=== PATIENT | female | born 1970 | race Caucasian/White ===

== ENCOUNTER 2024-12-15 11:53 | Emergency (ER) | payer BC ==
[~2024-12-15] VITALS: Ht 160 cm; Wt 61.0 kg
[2024-12-15 11:58] VITALS: O2SAT 100
[2024-12-15 11:59] VITALS: BP 149/69; PULSE 76; RESP 16; TEMP 36.6; O2SAT 100
[2024-12-15 13:24] LABS: BASOPHILS % 0.7 % (0.0-2.0); EOSINOPHILS % 1.1 % (0.0-5.0); LYMPHOCYTES % 27.4 % (20.0-50.0); MEAN CORPUSCULAR HEMOGLOBIN 30.4 pg (28.0-32.0); MEAN CORPUSCULAR HGB CONC 32.4 g/dL (31.0-37.0); MEAN CORPUSCULAR VOLUME 93.8 fL (81.0-99.0); MEAN PLATELET VOLUME 9.5 fl (7.4-10.4); MONOCYTES % 6.6 % (2.0-8.0); NEUTROPHILS % 64.2 % (40.0-76.0); PLATELET 325 x1000/uL (130-400); RED BLOOD CELL COUNT 4.26 mill/uL (4.2-5.4); RED CELL DISTRIBUTION WIDTH 13.6 % (11.6-14.6); WHITE BLOOD COUNT 7.3 x1000/uL (4.5-11.0)
[2024-12-15 13:52] LABS: CHLORIDE 106 mEq/L (98-107); POTASSIUM 4.1 mEq/L (3.5-5.1); SODIUM 140 mEq/L (136-145)
[2024-12-15 13:53] LABS: CARBON DIOXIDE 27 mEq/L (21-32)
[2024-12-15 13:54] LABS: CALCIUM 9.5 mg/dL (8.7-10.4)
[2024-12-15 13:58] LABS: CREATININE 0.7 mg/dL (0.6-1.0); GLUCOSE 97 mg/dL (70-105)
[2024-12-15 13:59] LABS: UREA NITROGEN BLOOD 7 mg/dL (9-23)
[2024-12-15 14:00] LABS: ALANINE AMINOTRANSFERASE 14 IU/L (10-49); ALBUMIN 4.1 g/dL (3.2-4.8); ASPARTATE AMINOTRANSFERASE 21 IU/L (<34)
[2024-12-15 14:01] LABS: BILIRUBIN TOTAL 0.9 mg/dL (0.1-1.0); PROTEIN TOTAL 6.8 g/dL (6.0-8.3)
[2024-12-15] MEDS: IOHEXOL-300 100 ML BOTTLE ONE (15:15)
[2024-12-15] MEDS: LIDOCAINE HCL 1%/EPI 1:200,000 30 ML VIAL MC ONE (16:19)
== END 2024-12-15 17:00 | disposition home or self-care (01) ==
LOC: ER 11:53
DX: S10.93XA Contusion of unspecified part of neck, initial encounter (principal); E03.9 Hypothyroidism, unspecified; Z98.890 Other specified postprocedural states; Z79.899 Other long term (current) drug therapy; Z88.0 Allergy status to penicillin; Z91.040 Latex allergy status; X58.XXXA Exposure to other specified factors, initial encounter; Y93.89 Activity, other specified; Y92.89 Other specified places as the place of occurrence of the external cause; Y99.8 Other external cause status
CPT/HCPCS: 80053; 81025; 85025; 36415; 70487; 70491; 10140; 99285; Q9967; J3490; Z7610 ×3